=== PATIENT | female | born 1995 | race African-American/Black ===

== ENCOUNTER 2025-06-20 11:27 | Inpatient (IN) | payer OTHER ==
[~2025-06-20] VITALS: Ht 160 cm; Wt 90.0 kg
[2025-06-20] MEDS: NICOTINE 14 MG/24 HR TRANSDERMAL TD SCH (09:00)
[2025-06-20] MEDS ORDERED: MELA10TA2 PO (11:53)
[2025-06-20] MEDS ORDERED: HOME MED LIST COMPLETE! XX SCH (11:55)
[2025-06-20 12:17] LABS: PLATELET COUNT, AUTOMATED 419 10^3/uL (150-450)
[2025-06-20 12:43] LABS: ETHYL ALCOHOL (ETHANOL) 0.003 % (0.000-0.010)
[2025-06-20 12:44] LABS: HCG, SERUM QUALITATIVE NEGATIVE (NEGATIVE)
[2025-06-20 12:45] LABS: ALT/SGPT 27 U/L (7.0-40); AST/SGOT 23 U/L (<34); CALCIUM LEVEL 8.8 MG/DL (8.5-10.1); CARBON DIOXIDE LEVEL 23 MMOL/L (20-31); CHLORIDE LEVEL 107 MMOL/L (98-107); CREATININE FOR GFR 0.59 MG/DL (0.55-1.30); GLOMERULAR FILTRATION RATE > 90.0 (>60); POTASSIUM SERUM 4.4 MMOL/L (3.5-5.1); SALICYLATE LEVEL < 3.0 MG/DL (<30); SODIUM LEVEL 141 MMOL/L (136-145)
[2025-06-20 12:50] LABS: AMPHETAMINES LEVEL URINE NEGATIVE (NEGATIVE); BARBITURATES URINE NEGATIVE (NEGATIVE); BENZODIAZEPINES URINE NEGATIVE (NEGATIVE); COCAINE METABOLITE URINE NEGATIVE (NEGATIVE)
[2025-06-20 12:51] LABS: CANNABINOIDS URINE NEGATIVE (NEGATIVE); METHADONE URINE NEGATIVE (NEGATIVE); OPIATES URINE NEGATIVE (NEGATIVE); PHENCYCLIDINE URINE NEGATIVE (NEGATIVE)
[2025-06-20] MEDS ORDERED: MOM 30 ML SUSPENSION UDC PO PRN (15:15)
[2025-06-20] MEDS ORDERED: MAALOX 30 ML SUSP *UDC PO PRN (15:15)
[2025-06-20] MEDS ORDERED: LORazepam 1 MG TAB PO PRN (15:15)
[2025-06-20] MEDS ORDERED: ACETAMINOPHEN 325 MG TAB PO PRN (15:15)
[2025-06-20] MEDS ORDERED: IBUPROFEN 400 MG TAB PO PRN (15:15)
[2025-06-20 16:21] VITALS: BP 118/72; TEMP 97.8; O2SAT 99
[2025-06-21 06:31] VITALS: BP 120/69; TEMP 97.7; O2SAT 96
[2025-06-21 14:39] VITALS: BP 130/86; TEMP 98; O2SAT 100
[2025-06-21] MEDS: LURASIDONE HCL 20 MG TAB PO SCH (17:55)
[2025-06-21] MEDS: traZODone 50 MG TAB PO PRN (20:13)
[2025-06-21] MEDS: PRAZOSIN 1 MG CAP PO SCH (20:13)
[2025-06-22 06:30] VITALS: BP 128/69; TEMP 98.9; O2SAT 98
[2025-06-22] MEDS: ESCITALOPRAM OXALATE 5 MG TABLET PO SCH (09:45)
[2025-06-22 15:06] VITALS: BP 123/76; TEMP 97.1; O2SAT 98
[2025-06-23 06:31] VITALS: BP 117/57; TEMP 99.6; O2SAT 97
[2025-06-23 17:37] VITALS: BP 130/85; TEMP 98.7; O2SAT 99
[2025-06-24 07:05] VITALS: BP 114/68; TEMP 97.7; O2SAT 99
[2025-06-24 15:19] VITALS: BP 138/84; TEMP 97.9; O2SAT 100
[2025-06-25 06:29] VITALS: BP 116/55; TEMP 98.1; O2SAT 99
[2025-06-25] MEDS: ESCITALOPRAM OXALATE 5 MG TABLET PO SCH (08:21)
[2025-06-25 15:09] VITALS: BP 121/64; TEMP 97.6; O2SAT 99
[2025-06-26 06:49] VITALS: BP 102/53; TEMP 97.8; O2SAT 100
[2025-06-26 16:18] VITALS: BP 137/88; TEMP 98; O2SAT 98
[2025-06-27 06:16] VITALS: BP 99/55; TEMP 98.2; O2SAT 100
[2025-06-27 15:46] VITALS: BP 105/58; TEMP 98.5; O2SAT 100
[2025-06-27] MEDS: HALOPERIDOL 5 MG TAB PO PRN (16:09)
[2025-06-28 06:29] VITALS: BP 107/61; TEMP 97.6; O2SAT 100
[2025-06-28] MEDS: OLANZapine 5 MG TAB PO PRN (08:16)
[2025-06-28 14:58] VITALS: BP 121/71; TEMP 97.9; O2SAT 99
[2025-06-28 20:04] VITALS: BP 121/71
[2025-06-29 06:41] VITALS: BP 113/64; TEMP 97.9; O2SAT 99
[2025-06-29] MEDS ORDERED: CLONI1TA PO (08:50)
[2025-06-29] MEDS ORDERED: ABIL1TAB11 PO (08:50)
[2025-06-29] MEDS ORDERED: LEXA5TAB13 PO (08:50)
== END 2025-06-29 10:03 | disposition home or self-care (01) | DRG 885 ==
LOC: EDBD 11:27 → M ED 11:27 → M ED INP 15:13 → M PSY 16:30
PROVIDERS: ADMIT Internal Medicine; ATTEND Internal Medicine
DX: F33.3 Major depressive disorder, recurrent, severe with psychotic symptoms (principal); R45.851 Suicidal ideations; F43.10 Post-traumatic stress disorder, unspecified; F10.20 Alcohol dependence, uncomplicated; F41.9 Anxiety disorder, unspecified; Z91.51 Personal history of suicidal behavior; Z91.52 Personal history of nonsuicidal self-harm; Z62.810 Personal history of physical and sexual abuse in childhood; E66.01 Morbid (severe) obesity due to excess calories; Z68.35 Body mass index [BMI] 35.0-35.9, adult